=== PATIENT | female | born 1975 | race Two or more races ===

== ENCOUNTER 2022-02-02 10:54 | Emergency (ER) | payer SELFPAY ==
[~2022-02-02] VITALS: Ht 152.4 cm; Wt 67.1 kg
[2022-02-02 10:59] VITALS: BP 144/96
--- NOTE | 2022-02-02 11:05 | NUR ---
PT AMBULATED TO BED, STEADY GAIT
[2022-02-02] MEDS ORDERED: GABAPENTIN 300 MG CAP PO ONE (12:55)
--- NOTE | 2022-02-02 13:17 | NUR ---
US AT BEDSIDE
[2022-02-02] MEDS ORDERED: GABA300C PO (13:57)
[2022-02-02] MEDS ORDERED: MECL-303 PO (14:08)
[2022-02-02 15:03] VITALS: BP 124/68
--- NOTE | 2022-02-02 15:05 | NUR ---
Patient discharged with v/s stable. Written and verbal after care instructions given and explained. Patient verbalized understanding. Ambulatory with steady gait. All questions addressed prior to discharge. Advised to follow up with PMD.
== END 2022-02-02 15:05 | disposition home or self-care (01) ==
LOC: MED 10:54
DX: M79.605 Pain in left leg (principal); R20.0 Anesthesia of skin; R20.2 Paresthesia of skin; Z79.899 Other long term (current) drug therapy
CPT/HCPCS: 93971; 99284; Q0092